=== PATIENT | male | born 1960 | race Caucasian/White ===

== ENCOUNTER 2017-01-28 05:59 | Day surgery (SDC) | payer OTHER ==
[2017-01-25 10:38] LABS: BASOPHIL % 0.6 % (0-2); PLATELET COUNT 229 x10^3mcL (130-400)
[2017-01-25 11:11] LABS: ALBUMIN 3.7 g/dL (3.4-5.0); ALKALINE PHOSPHATASE 79 U/L (46-116); ALT/SGPT 21 U/L (16-63); AST/SGOT 16 U/L (15-37); BILIRUBIN TOTAL 0.4 mg/dL (0.20-1.00); CALCIUM 9.2 mg/dL (8.5-10.1); CARBON DIOXIDE 28.4 mmol/L (21-32); CHLORIDE SERUM 103 mmol/L (98-107); CREATININE SERUM 0.9 mg/dL (0.7-1.3); GFR1 > 60 mL/min; GLUCOSE SERUM 97 mg/dL (74-106); POTASSIUM SERUM 4.1 mmol/L (3.5-5.1); SODIUM SERUM 139 mmol/L (136-145); TOTAL PROTEIN, SERUM 7.2 g/dL (6.4-8.2)
[~2017-01-28] VITALS: Ht 193 cm; Wt 115.7 kg
[2017-01-28 06:21] VITALS: BP 130/82
[2017-01-28 11:42] VITALS: BP 133/89
== END 2017-01-28 11:35 | disposition home or self-care (01) ==
LOC: DS 05:59 → OR 07:30 → DS 07:30
PROVIDERS: Surgery
PROC: 0WUF0JZ Supplement Abdominal Wall with Synthetic Substitute, Open Approach (ICD-10-PCS; principal; 2017-01-28 07:30)
DX: K42.0 Umbilical hernia with obstruction, without gangrene (principal); E66.9 Obesity, unspecified; Z68.30 Body mass index [BMI] 30.0-30.9, adult
CPT/HCPCS: C1781; J0690; J1170; J2250; J2405; J2704; J3010; J3490; J7120